=== PATIENT | male | born 1990 | race Two or more races ===

== ENCOUNTER 2024-02-26 15:21 | Emergency (ER) | payer MEDICAID, OTHER ==
[~2024-02-26] VITALS: Ht 172.7 cm; Wt 65.9 kg
[2024-02-26 19:43] VITALS: BP 114/76; PULSE 76; RESP 16; TEMP 98.6; O2SAT 99
[2024-02-26] MEDS ORDERED: CYCL-614 PO (19:45)
[2024-02-26] MEDS: KETOROLAC TROMETH 60MG/2ML VIAL IM ONE (19:47)
[2024-02-26] MEDS ORDERED: ACE3T PO (19:48)
[2024-02-26] MEDS ORDERED: HYDR-4902 PO (20:21)
== END 2024-02-26 19:54 | disposition home or self-care (01) ==
LOC: ER 15:21
DX: S20.212A Contusion of left front wall of thorax, initial encounter (principal); J45.909 Unspecified asthma, uncomplicated; F12.10 Cannabis abuse, uncomplicated; X58.XXXA Exposure to other specified factors, initial encounter; Y93.89 Activity, other specified; Y92.89 Other specified places as the place of occurrence of the external cause; Y99.8 Other external cause status
CPT/HCPCS: 71101; 96372; 99283; J1885